=== PATIENT | female | born 1990 | race Two or more races ===

== ENCOUNTER 2024-12-09 20:36 | Emergency (ER) | payer OTHER, MEDICAID ==
[~2024-12-09] VITALS: Ht 170.2 cm; Wt 70.1 kg
[2024-12-09 21:20] LABS: Basophils # (auto) 0.1 10 ^3/uL (0-0.2); Basophils % (auto) 1.2 % (0.0-2.0); Eosinophils # (auto) 0.3 10 ^3/uL (0-0.8); Eosinophils % (auto) 3.4 % (0.0-7.0); Hematocrit 38.9 % (36.0-46.0); Hemoglobin 12.9 g/dL (12.2-16.2); Lymphocytes # (auto) 2.8 10 ^3/uL (0.4-5.4); Lymphocytes % (auto) 34.6 % (10.0-50.0); Mean Corpuscular Hemoglobin 27.1 pg (28.0-32.0); Mean Corpuscular Hgb Conc. 33.3 g/dL (32.0-36.0); Mean Corpuscular Volume 81.3 fL (80.0-100.0); Monocytes # (auto) 0.5 10 ^3/uL (0-1.3); Monocytes % (auto) 5.6 % (0.0-12.0); Neutrophils # (auto) 4.5 10 ^3/uL (1.6-8.6); Neutrophils % (auto) 55.2 % (37.0-80.0); Nucleated Red Blood Cells % 0.1 %; Platelet Count (auto) 291 10^3/uL (140-450); Red Blood Cells 4.78 10^6/uL (4.0-5.20); Red Cell Distribution Width 15.1 % (11.8-14.3); White Blood Cell 8.1 10^3/uL (4.4-10.8)
--- NOTE | 2024-12-09 21:26 | ED.PDOC ---
History of Present Illness HPI Comments 34-year-old F, with a history of DM II, presents with c/o right-facial numbness and droop, with associated slurred speech and stuttering. Patient reports unprovoked and gradual onset of symptoms, that began with uncontrollable drooling from the right side of her mouth on the evening of 12/03/24. Patient states on noticing her speech difficulties the day afterwords, which has been only progressively worsening since. Patient admits to recent life stressors, due to personal worker's compensation case shes undergoing. Patient denies having any extremity weakness, fatigue, headache, vision changes, or further associated symptoms. Chief Complaint: Right Sided Weakness Time Seen by MD: 20:50 Reviewed Notes: Nurses Notes, Medications, Allergies Allergies: Coded Allergies: No Known Drug Allergy (Unverified Allergy, Unknown, 12/09/24) Information Source: Patient Mode of Arrival: Ambulatory Severity: Moderate Timing: Days Duration: Since onset Prehospital treatment: None Past Medical History PAST MEDICAL HISTORY: DM (type II ) Surgical History: Denies all surgeries CARDIAC/VASCULAR SONOGRAPHER History: No Pertinent CARDIAC/VASCULAR SONOGRAPHER History Social History Smoker: Non-Smoker Alcohol: Denies ETOH Use Drugs: Denies Drug Use Lives In: Home All Other Systems: Reviewed and Negative (Comprehensive systems review obtained and negative except for what is stated in the HPI.) Physical Exam General Appearance: No Apparent Distress, Normal HEENT: Normal ENT Inspection, Pharynx Normal, TMs Normal, Other (Right facial droop that spares the forehead, otherwise normal HEENT inspection ) Neck: Full Range of Motion, Non-Tender, Normal, Normal Inspection Respiratory: Chest Non-Tender, Lungs Clear, No Accessory Muscle Use, No Respiratory Distress, Normal Breath Sounds Cardiovascular: No Edema, No JVD, No Murmur, No Gallop, Normal Peripheral Pulse s, Regular Rate/Rhythm Breast Exam: Deferred Gastrointestinal: No Organomegaly, Non Tender, No Pulsatile Mass, Normal Bowel Sounds, Soft Genitalia: Deferred Pelvic: Deferred Rectal: Deferred Extremities: No calf tenderness, Normal capillary refill, Normal inspection, Normal range of motion, Non-tender, No pedal edema Musculoskeletal : Apperance: Normal Neurologic: Alert, end worker II-XII nml as Tested, Facial Droop (Right facial droop that spares the forehead), Normal Affect, Normal Mood, No Sensory Deficits Cerebellar Function: Normal Reflexes: Normal Skin: Dry, Normal Color, Warm Lymphatic: No Adenopathy Was a procedure done? Was a procedure done?: No Differential Dx Considerations may include: CVA, TIA, cerebral palsy, viral syndrome, among others X-Ray, Labs, Meds, VS Vital Signs Date Time Temp Pulse Resp B/P (MAP) Pulse Ox O2 Delivery O2 Flow Rate FiO2 12/09/24 21:44 76 14 100 Room Air* 0 21 12/09/24 21:30 97.9 76 14 94/65 (75) 100 97.9 12/09/24 21:12 99.0 90 16 94/65 (75) 96 99.0 Lab Test 12/09/24 22:04 12/09/24 21:11 Range/Units Troponin I High Sensitivity < 3 L < 3 L </=34 ng/L White Blood Count 8.1 4.4-10.8 10^3/uL Red Blood Count 4.78 4.0-5.20 10^6/uL Hemoglobin 12.9 12.2-16.2 g/dL Hematocrit 38.9 36.0-46.0 % Mean Corpuscular Volume 81.3 80.0-100.0 fL Mean Corpuscular Hemoglobin 27.1 L 28.0-32.0 pg Mean Corpuscular Hemoglobin Concent 33.3 32.0-36.0 g/dL Red Cell Distribution Width 15.1 H 11.8-14.3 % Platelet Count 291 140-450 10^3/uL Mean Platelet Volume 9.3 6.9-10.8 fL Neutrophils (%) (Auto) 55.2 37.0-80.0 % Lymphocytes (%) (Auto) 34.6 10.0-50.0 % Monocytes (%) (Auto) 5.6 0.0-12.0 % Eosinophils (%) (Auto) 3.4 0.0-7.0 % Basophils (%) (Auto) 1.2 0.0-2.0 % Neutrophils # (Auto) 4.5 1.6-8.6 10 ^3/uL Lymphocytes # (Auto) 2.8 0.4-5.4 10 ^3/uL Monocytes # (Auto) 0.5 0-1.3 10 ^3/uL Eosinophils # (Auto) 0.3 0-0.8 10 ^3/uL Basophils # (Auto) 0.1 0-0.2 10 ^3/uL Nucleated Red Blood Cells 0.1 % Sodium Level 139 136-145 mmol/L Potassium Level 4.3 3.5-5.1 mmol/L Chloride Level 105 98-107 mmol/L Carbon Dioxide Level 25 20-31 mmol/L Anion Gap 9 5-15 Blood Urea Nitrogen 15 9-23 mg/dL Creatinine 0.77 0.550-1.02 mg/dL Glomerular Filtration Rate Calc 104 >90 mL/min BUN/Creatinine Ratio 19.5 10.0-20.0 Serum Glucose 157 H 74-106 mg/dL Calcium Level 10.3 8.7-10.4 mg/dL Time of 1ST Reevaluation: 21:20 Reevaluation 1ST: Unchanged Patient Education/Counseling: Diagnosis, Treatment, Other (need for admission ) Family Education/Counseling: No Family Present Departure 1 Departure Time of Disposition: 22:55 (Patient presents for right-sided facial droop. Patient's CT is concerning for possible CVA versus demyelinating disease. We will admit patient for further workup and expert consultation) Impression: Primary Impression: Weakness on right side of face Disposition: ADMITTED INPATIENT Admit to: Med Surg Condition: Serious Critical Care Note Critical Care Time?: Yes Critical care comment: Concern for CVA Authorized and Performed by: Oanh Ragland MD Total critical care time: Approximately 39 minutes Due to a high probability of clinically significant, life threatening deterioration, the patient required my highest level of preparedness to intervene emergently and I personally spent this critical care time directly and personally managing the patient. This critical care time included obtaining a history; examining the patient; pulse oximetry; ordering and review of studies; arranging urgent treatment with development of a management plan; evaluation of patient's response to treatment; frequent reassessment; and, discussions with other providers. This critical care time was performed to assess and manage the high probability of imminent, life-threatening deterioration that could result in multi-organ failure. It was exclusive of separately billable procedures and treating other patients and teaching time. Please see my other sections and the rest of the note for further information on patient assessment and treatment. Stability Stability form required: No Heart Score Heart Score: Heart Score Response (Comments) Value History N/A 0 EKG N/A 0 Age N/A 0 Risk Factors N/A 0 Troponin N/A 0 Total 0 I personally scribed for OANH RAGLAND MD ([email or web address]) on 12/09/24 at 21:26. Electronically submitted by Gabe Mills ([email or web address]). OANH RAGLAND MD December 09, 2024 21:26
[2024-12-09 21:30] LABS: Chloride 105 mmol/L (98-107); Potassium 4.3 mmol/L (3.5-5.1); Sodium 139 mmol/L (136-145)
[2024-12-09 21:31] LABS: Anion Gap 9 (5-15); Carbon Dioxide 25 mmol/L (20-31)
[2024-12-09 21:32] LABS: Calcium 10.3 mg/dL (8.7-10.4)
--- NOTE | 2024-12-09 21:35 | DVH ---
CHEST RADIOGRAPH Indication: right sided facial droop Technique: Single frontal view of the chest was obtained COMPARISON: None FINDINGS: Lines and Tubes: None Lungs: Clear. Pleura: No effusion. No pneumothorax. Cardiomediastinal contours: Unremarkable IMPRESSION: No abnormality.
[2024-12-09 21:36] LABS: BUN/Creatinine Ratio 19.5 (10.0-20.0); Blood Urea Nitrogen 15 mg/dL (9-23)
--- NOTE | 2024-12-09 21:38 | DVH ---
CLINICAL HISTORY: right sided facial droop TECHNIQUE: Helical imaging carried out from skull base to vertex without intravenous contrast. This e xam was performed according to our departmental dose optimization program. Up-to-date CT equipment an d radiation dose reduction techniques are utilized as appropriate. CTDIVol: 55.66 +0.07 mGy DLP: 892.25 mGy-cm WID: COMPARISON: None FINDINGS: Note is made of cavum septum pellucidum. A few patchy hypodensities are seen in the cerebral white ma tter. The ventricles and subarachnoid spaces are normal in size and configuration. There is no midline kostas ft or mass effect. The de leon white matter interfaces are maintained. The basal cisterns are patent. Th ere is no evidence of acute intracranial hemorrhage or extra-axial fluid collection. The mastoid air cells and visualized paranasal sinuses are well-aerated. IMPRESSION: 1. No acute intracranial abnormality. 2. Mild Patchy hypodensities in the cerebral white matter. DDX includes early chronic small-vessel i schemia, demyelinating process, or sequelae of remote infectious or inflammatory insult.
[2024-12-09 21:44] VITALS: PULSE 76; RESP 14; O2SAT 100
[2024-12-09 21:50] LABS: Glucose 157 mg/dL (74-106)
[2024-12-10 01:03] LABS: Urine Bacteria None Seen /hpf (None Seen)
[2024-12-10 01:17] LABS: Urine Blood Negative /uL (Negative); Urine Clarity Clear (Clear); Urine Color Light-Yellow (Yellow); Urine Protein, UAD Negative (Negative); Urine Specific Gravity 1.015 (1.001-1.035); Urine Squamous Epithelial Cell FEW /hpf (<5); Urine Urobilinogen Normal (Negative); Urine WBC 2 /HPF (0-5)
[2024-12-10 02:29] VITALS: BP 95/57; PULSE 74; RESP 12; TEMP 98.7; O2SAT 100
== END 2024-12-10 02:31 | disposition admitted as inpatient to this hospital (09) ==
LOC: ER 20:36
DX: R29.810 Facial weakness (principal); E11.9 Type 2 diabetes mellitus without complications
CPT/HCPCS: 36415; 70450; 71045; 80048; 81001; 82947; 84484; 85025